=== PATIENT | male | born 1990 ===

== ENCOUNTER → 2017-10-13 | Outpatient (CLI) | payer OTHER, MEDICARE ==
[~2017-10-13] MED LIST: HYDPAM50 PO; OLAN10 PO; Prednisone20 MG PO; SERT25 PO; Trazodone HCl300 MG
[2017-10-13 14:37] LABS: Bilirubin, Urine Neg (Neg); Blood, Urine Neg (Neg); Glucose Qualitative, Urine Neg (Neg); Ketones, Urine Neg (Neg); Leukocyte Esterase, Urine Neg (Neg); Nitrite, Urine Neg (Neg); Protein, Urine Neg (Neg); Specific Gravity, Urine 1.015 (1.003-1.022); Urobilinogen, Urine NORM (Normal); pH, Urine 6.5 (5.0-8.0)
[2017-10-13 14:44] LABS: Appearance, Urine Clear (Clear); Color, Urine Yellow (P-Yellow)
== END ==
LOC: LAB SHORT 14:29 → LAB 14:29
PROVIDERS: Internal Medicine
DX: E23.2 Diabetes insipidus (principal)
CPT/HCPCS: 81003; 83935